=== PATIENT | female | born 1960 | race Caucasian/White ===

== ENCOUNTER 2017-03-28 17:36 | Observation (INO) ==
[2017-03-28] MEDS ORDERED: TYLENOL PO PRN (18:16)
[2017-03-28] MEDS ORDERED: ASPIRIN PO STA (19:01)
[2017-03-28] MEDS ORDERED: LOVENOX SUBQ ONE (19:01)
[2017-03-28] MEDS: NITROGLYCERIN TOP SCH (19:11)
[2017-03-28] MEDS: LOPRESSOR PO SCH ×2 (19:32→20:53)
[2017-03-28 19:33] LABS: MANUAL DIFF NEEDED? NO
--- NOTE | 2017-03-28 19:34 | Diag Imaging Result Doc PS360 ---
EXAM: CHEST-PORTABLE HISTORY: chest pain TECHNIQUE: Portable upright AP COMPARISON: 06/20/2014 FINDINGS: The lungs are well expanded. The heart is not enlarged. The vessels are not distended. No pneumonia. No pleural effusions identified. IMPRESSION: Negative chest. Electronically signed by Lizandro Villeda 03/28/2017 7:32 PM
[2017-03-28 19:36] LABS: BASO% 0.4 % (0.0-0.8); EOS# 0.52 X1000 (0.0-0.7); EOS% 4.4 % (0.0-10.0); HEMOGLOBIN 12.5 g/dL (12.0-16.0); IMM GRAN# 0.03 X1000 (0.0-0.04); IMM GRAN% 0.3 % (0.0-0.5); LYMPH# 3.06 X1000 (1.2-3.4); MCH 27.3 PG (27-31); MCHC 32.9 g/dL (33-37); MONO# 0.93 X1000 (0.11-0.59); MONO% 7.9 % (1.7-9.3); MPV 10.6 FL (7.4-10.4); PLT 264 X1000 (130-400); RBC 4.58 XMIL (4.2-5.4)
[2017-03-28 19:55] LABS: AGAP 4; ALBUMIN 3.7 g/dL (3.5-5.0); ALKALINE PHOSPHATASE 60 U/L (32-104); BUN 17 mg/dL (8-22); CALCIUM 8.4 mg/dL (8.8-10.2); CHLORIDE 105 mmol/L (98-107); COSMO 285; GOT 40 U/L (10-30); GPT 19 U/L (10-36); POTASSIUM 3.7 mmol/L (3.5-5.1); SODIUM 142 mmol/L (136-145); TCO2 33 mmol/L (25-35); TOTAL BILIRUBIN 0.19 mg/dL (0.20-1.00); TOTAL PROTEIN 6.4 g/dL (6.3-8.3)
[2017-03-28 20:00] LABS: INR 1.01; PROTIME 10.6 Seconds (9.2-11.7)
[2017-03-28 20:01] LABS: CK PROFILE 239 U/L (24-173)
[2017-03-28 20:04] LABS: FREE T4 1.23 ng/dL (0.93-1.70)
[2017-03-28 20:22] LABS: CK INDEX 7.7 (0.0-2.5); CK-MB 18.48 ng/mL (0.0-5.0)
[2017-03-28] MEDS ORDERED: MORPHINE IV ONE (20:40)
[2017-03-28] MEDS ORDERED: LIPITOR PO SCH (21:00)
[2017-03-28] MEDS ORDERED: TYLENOL ARTHRITIS PO SCH (21:00)
[2017-03-28] MEDS ORDERED: PAXIL PO SCH (21:00)
[2017-03-28] MEDS: NORVASC PO SCH (21:21)
[2017-03-28] MEDS ORDERED: CRESTOR PO ONE (22:23)
[2017-03-29] MEDS: NITROGLYCERIN TOP SCH ×3 (00:30→07:09)
[2017-03-29 05:35] LABS: MANUAL DIFF NEEDED? NO
--- NOTE | 2017-03-29 05:39 | EKG Report ---
Test Performed on : 03/28/2017 6:41:51 PM Test Reason : NO ORDER IN [employer] Blood Pressure : / mmHG Vent. Rate : 073 BPM Atrial Rate : 073 BPM P-R Int : 160 ms QRS Dur : 102 ms QT Int : 466 ms P-R-T Axes : 032 033 026 degrees QTc Int : 513 ms Normal sinus rhythm. Low voltage QRS Inferior infarct , age undetermined Cannot rule out Anterior infarct , age undetermined T wave abnormality, consider lateral ischemia Prolonged QT Abnormal ECG When compared with ECG of 07-APR-2015 11:17, Minimal criteria for Anterior infarct are now present Inferior infarct is now present T wave inversion now evident in Inferior leads T wave inversion now evident in Anterolateral leads Confirmed by Evans METCALF, Sina Brand ([id number]) on 04/02/2017 2:13:19 PM
[2017-03-29 05:57] LABS: BASO% 0.5 % (0.0-0.8); EOS# 0.67 X1000 (0.0-0.7); EOS% 6.6 % (0.0-10.0); HEMOGLOBIN 11.3 g/dL (12.0-16.0); IMM GRAN# 0.03 X1000 (0.0-0.04); IMM GRAN% 0.3 % (0.0-0.5); LYMPH# 3.17 X1000 (1.2-3.4); LYMPH% 31.1 % (20.5-51.1); MCH 26.9 PG (27-31); MCHC 32.3 g/dL (33-37); MCV 83.3 FL (81-99); MONO# 0.93 X1000 (0.11-0.59); MONO% 9.1 % (1.7-9.3); MPV 11.2 FL (7.4-10.4); NEUT% 52.4 % (42.2-75.2); PLT 257 X1000 (130-400)
[2017-03-29] MEDS ORDERED: ASPIRIN PO ONE (06:15)
[2017-03-29] MEDS ORDERED: ZANTAC PO ONE (06:15)
[2017-03-29] MEDS ORDERED: PREDNISONE PO ONE (06:16)
[2017-03-29] MEDS ORDERED: BENADRYL PO ONE (06:16)
--- NOTE | 2017-03-29 06:20 | EKG Report ---
Test Performed on : 03/29/2017 05:42:00 AM Test Reason : Chest pain Blood Pressure : / mmHG Vent. Rate : 050 BPM Atrial Rate : 050 BPM P-R Int : 180 ms QRS Dur : 102 ms QT Int : 544 ms P-R-T Axes : 059 053 068 degrees QTc Int : 495 ms Sinus bradycardia. Low voltage QRS Cannot rule out Anterior infarct (cited on or before 28-MAR-2017) T wave abnormality, consider lateral ischemia Abnormal ECG When compared with ECG of 28-MAR-2017 18:41, (Unconfirmed) Serial changes of Anterior infarct present Confirmed by Evans METCALF, Sina Brand ([id number]) on 04/02/2017 2:13:41 PM
[2017-03-29 06:24] LABS: AGAP 17; BUN 21 mg/dL (8-22); CALCIUM 8.2 mg/dL (8.8-10.2); CHLORIDE 104 mmol/L (98-107); COSMO 283; MAGNESIUM 2.2 mg/dL (1.5-2.7); POTASSIUM 3.9 mmol/L (3.5-5.1); SODIUM 141 mmol/L (136-145); TCO2 20 mmol/L (25-35)
--- NOTE | 2017-03-29 06:39 | HISTORY AND PHYSICAL ---
PRIMARY CARE PHYSICIAN: Dr. Hans Carlos. CHIEF COMPLAINT: Chest pain. HISTORY OF PRESENT ILLNESS: A 56-year-old white female with a complicated past medical history, presents for evaluation of above-mentioned symptoms. Current history of present illness began on Saturday evening. At that time, patient states she developed significant left-sided chest discomfort with exertion. The patient describes the pain as a "squeeze" radiating to the left arm. She had associated palpitations and diaphoresis. She denies significant shortness of breath and nausea. The patient states the pain lasted approximately 3 hours and improved, although did not completely resolve. Since that time, patient has had persistent chest discomfort. She notes increasing pain with minimal exertion. She denies paroxysmal nocturnal dyspnea and lower extremity edema. Because of worsening pain, the patient presented to my office for further evaluation and management. Upon arrival, an EKG was performed. Significant anterolateral ST and T-wave abnormalities were identified, new from previous. The patient will be admitted to the hospital for full evaluation and management of unstable angina, with possible evolving acute myocardial infarction. PAST MEDICAL HISTORY: 1. Anxiety. 2. History of appendicitis, status post appendectomy in 1985. 3. Attention deficit disorder. 4. [place]inares's esophagus. 5. History of a hyperplastic polyp, status post cecectomy in 2010. 6. History of bilateral fibrocystic breast disease. 7. History of cervical cancer, status post PANCHO/BSO in 2009. 8. History of chest discomfort, status post negative left heart catheterization per report in 2006, and negative stress testing in 09/2012 and 06/2016. 9. Interstitial cystitis. 10. Chronic cholecystitis, status post cholecystectomy in 1994. 11. History of colonic diverticulosis. 12. Reflux disease. 13. Hypertriglyceridemia. 14. Hyperlipidemia. 15. Hypertension. 16. History of hypokalemia. 17. Iron deficiency anemia. 18. Irritable bowel syndrome. 19. Migraine headaches. 20. Obstructive sleep apnea treated with CPAP therapy. 21. Right rotator cuff repair in 2014. 22. Overweight. 23. Palpitations. 24. Family history of metastatic breast cancer and colon cancer. 25. History of a superficial squamous cell carcinoma, status post resection. 26. History of papillary carcinoma of the thyroid in 2005. CURRENT MEDICATIONS: 1. Amlodipine 5 mg twice daily. 2. Aspirin 81 mg daily. 3. Calcium plus vitamin D daily. 4. Colace 100 mg 2 tablets at bedtime. 5. CoQ10 100 mg daily. 6. Estrace 1 mg daily. 7. Irbesartan 150 mg daily. 8. Potassium chloride 8 mEq daily. 9. Lansoprazole 30 mg daily. 10. Levothyroxine 125 mcg alternating with 150 mcg daily. 11. Meloxicam 15 mg daily. 12. MiraLAX as needed. 13. Paroxetine 40 mg daily. 14. Tylenol Arthritis 650 mg 2 tablets at bedtime. 15. Zyrtec 10 mg daily as needed. ALLERGIES: Patient states she is allergic to Celexa which causes fatigue, Cozaar which causes chest pain, Crestor which causes arthralgias, contrast dye which causes shortness of breath, hydrochlorothiazide which causes excessive hypokalemia, and lisinopril which causes chest discomfort. SOCIAL HISTORY: Patient previously smoked 1/2 pack per day for 6 years. She quit in 1987. She occasionally uses alcohol. She denies illicit drug use. 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 She enjoys singing and sewing. She exercises routinely. FAMILY HISTORY: Patient's father passed at age 82 secondary to complications of a stroke. He had a history of an acute myocardial infarction at age 71, hypertension, diabetes, Alzheimer's dementia, congestive heart failure, and hyperlipidemia. Patient's mother passed at age 78 secondary to complications of diabetes, uterine cancer, hypertension, hyperlipidemia, lung cancer, and renal cell carcinoma. Patient's brother passed at age 58 secondary to complications of colon cancer. REVIEW OF SYSTEMS: A 12 point review of systems was performed. Pertinent positives and negatives are noted in the history present illness. PHYSICAL EXAMINATION: VITAL SIGNS: Temperature 98.4 degrees, heart rate 91, respirations 16, blood pressure is 128/85. GENERAL: Well-nourished, well-developed, no acute distress. HEENT: Normocephalic, atraumatic. Pupils equal, round, reactive to light. Extraocular muscles intact. Sclerae anicteric. [place] conjunctivae. Oral and nasopharynx clear, without exudate. NECK: Supple. No lymphadenopathy. No thyromegaly. No bruits auscultated. CARDIOVASCULAR: Regular rate and rhythm. No significant murmurs, rubs, or gallops. PULMONARY: Clear to auscultation bilaterally. ABDOMEN: Soft, nontender, nondistended. Positive bowel sounds. EXTREMITIES: Moves all extremities well. No significant clubbing, cyanosis, or edema. NEUROLOGIC: Cranial nerves 2 through 12 grossly intact. Motor and sensory grossly intact. PSYCHOLOGIC: Examination is appropriate. LABORATORY DATA: Pending at the time of admission. EKG reveals significant ST and T-wave abnormalities in the anterior lateral leads. ASSESSMENT AND PLAN: A 56-year-old white female, with a complicated past medical history as noted, presents for evaluation of chest discomfort. The patient's EKG today is significantly changed from her EKG in October 2016. The patient continues to have significant chest discomfort with minimal exertion. I suspect the patient is at least having unstable angina. EKG is more consistent with an evolving acute myocardial infarction. We will admit the patient to the hospital for full evaluation and management. 1. Admit to CICU. 2. Unstable angina/evolving acute myocardial infarction - We will start patient on aspirin, Lovenox, metoprolol, and nitroglycerin paste. I have discussed case with Dr. Cevallos, and he will immediately consult. We will monitor patient on telemetry and follow serial cardiac enzymes. Depending on the initial set of cardiac enzymes, we will determine if a more acute intervention, including transfer for heart catheterization, is more appropriate. 3. Hypertension - For now, we will continue patient's home medications. We will monitor blood pressure closely, with the addition of nitroglycerin paste. 4. Hyperlipidemia - Unfortunately, the patient has had difficulty tolerating statin intervention. We will consider options depending on patient's cardiac evaluation. 5. Hypothyroidism - We will continue patient on replacement. 6. Reflux disease - We will continue patient on lansoprazole therapy. 7. Fluid/Electrolytes/Nutrition - We will monitor electrolytes, saline lock IV, NPO prophylaxis. Patient will be placed on Lovenox. cc: Hans Carlos MD
[2017-03-29] MEDS: LOPRESSOR PO SCH ×2 (06:48→09:02)
[2017-03-29] MEDS ORDERED: SYNTHROID PO SCH (07:00)
[2017-03-29] MEDS ORDERED: NITROGLYCERIN TOP SCH (07:06)
[2017-03-29 08:14] VITALS: BP 90/61
[2017-03-29] MEDS ORDERED: ESTRACE PO SCH (09:00)
[2017-03-29] MEDS ORDERED: AVAPRO PO SCH (09:00)
[2017-03-29] MEDS ORDERED: LIPITOR PO SCH (09:00)
[2017-03-29] MEDS ORDERED: CALTRATE 600 + D PO SCH (09:00)
[2017-03-29] MEDS: NORVASC PO SCH (09:02)
[2017-03-29] MEDS ORDERED: HEPARIN 1000 UNITS/NS 2,000 UNIT/1,000 ML IV.SOLN ONE (09:12)
--- NOTE | 2017-03-29 10:59 | ECHO REPORT ---
ORDER DATE: 03/29/2017 INTERPRETING PHYSICIAN: Dr. Carlos Alberto Cevallos ECHOCARDIOGRAPHIC MEASUREMENTS: Interventricular septum: 1.1 cm. Left ventricular posterior wall: 1.1 cm. Diastolic diameter: 4.9 cm. Left atrium: 3.6 cm. Aortic root: 3.5 cm. SUMMARY OF THE 2-DIMENSIONAL IMAGIN. Aortic valve leaflets are trileaflet. Mitral valve was normal. There is mild mitral annular calcification. Pulmonic valve was normal. Tricuspid valve was normal. 2. Peak velocity across the aortic valve is less than 2 m/sec. There is no aortic stenosis or regurgitation. There is mild mitral regurgitation. Mild tricuspid regurgitation. Trace pulmonary regurgitation. 3. Peak velocity across the tricuspid valve was 2.34 m/sec. 4. Normal left ventricular cavity size. Estimated ejection fraction of 45-50%. There is inferior wall and inferoapical wall akinesis. 5. There is no pericardial effusion or obvious intracardiac mass or thrombus seen. cc: MD Hans Cordova MD
--- NOTE | 2017-03-29 18:54 | DISCHARGE SUMMARY ---
ADMISSION DATE: 03/28/2017 DISCHARGE DATE: 03/29/2017 ADMISSION DIAGNOSIS: Chest pain. DISCHARGE DIAGNOSES: 1. Evolving acute myocardial infarction. 2. Hypertension, present on arrival. 3. Hyperlipidemia, present on arrival. 4. Hypothyroidism, present on arrival. 5. Reflux disease present on arrival. CONSULTATIONS: Carlos Alberto Cevallos MD with Cardiology was consulted for further evaluation and management of chest discomfort/acute myocardial infarction. PROCEDURES: An echocardiogram was performed on 03/29/2017 which revealed aortic valve leaflets are trileaflet. Mitral valve was normal. There is mild mitral annular calcification. Pulmonic valve was normal. Tricuspid valve was normal. Peak velocity across the aortic valve is less than 2 meters/second. There is no aortic stenosis or regurgitation. There is mild mitral regurgitation, mild tricuspid regurgitation, trace pulmonary regurgitation. Peak velocity across the tricuspid valve was 3.4 m/sec. Normal left ventricular cavity size. Estimated ejection fraction of 45-50%. There is inferior wall and inferior apical wall akinesis. There is no pericardial effusion or obvious intracardiac mass or thrombus seen. HISTORY AND PHYSICAL EXAMINATION: See admit note. PHYSICAL EXAMINATION PRIOR TO DISCHARGE: Vital Signs: Temperature 98.7 degrees, heart rate 78, respirations 19, blood pressure is 90/61. General: Well-nourished, well-developed, in no acute distress. Cardiovascular: Regular rate and rhythm. No significant murmurs, rubs, or gallops. Pulmonary: Clear to auscultation bilaterally. Abdomen: Soft, nontender, nondistended. Positive bowel sounds. Extremities: Moves all extremities well. No significant clubbing, cyanosis, or edema. Dermatologic: Evaluation reveals no evidence of rash. LABORATORY DATA PRIOR TO DISCHARGE: White blood cell count 10.18, hemoglobin 11.3, hematocrit 35.0, platelet count 257,000. Sodium 141, potassium 3.9, chloride 104, bicarbonate 20, BUN 21, creatinine 0.9, glucose 80, calcium 8.2, magnesium 2.2, troponin 0.962, total cholesterol 182, triglycerides 162, HDL 39, LDL 130. HOSPITAL COURSE: Patient was admitted as per history and physical examination. Hospital course per condition is as follows: 1. Evolving acute myocardial infarction - Upon admission, patient had complained of 48 hours of chest discomfort. Initial set of cardiac enzymes were slightly positive as described. Cardiology was immediately consulted. Patient was started on Lovenox, metoprolol, nitroglycerin paste, and an aspirin. The patient tolerated this very well. With treatment, patient's chest pain completely resolved. The patient will be transferred to [facility] immediately for left heart catheterization and possible intervention. Further medication recommendations will be made thereafter. 2. Hypertension - Patient's blood pressure has remained controlled while hospitalized. Once again, outpatient medical intervention will be determined by the left heart catheterization findings. 3. Hyperlipidemia - Patient had difficulty tolerating statin intervention in the past. We will need to attempt alternative agents upon discharge. 4. Hypothyroidism - Patient will be continued on replacement. 5. Reflux disease - We will continue patient on lansoprazole therapy. DISCHARGE CONDITION: Stable. DISPOSITION: Transferred to [facility] for left heart catheterization. DISCHARGE MEDICATIONS/HOME MEDICATIONS: 1. Amlodipine 5 mg twice daily. 2. Aspirin 325 mg daily. 3. Calcium plus vitamin D daily. 4. Colace 100 mg 2 tablets at bedtime. 5. CoQ10, 100 mg daily. 6. Estrace 1 mg daily. 7. Irbesartan 150 mg daily. 8. Potassium 8 mEq daily. 9. Lansoprazole 30 mg daily. 10. Levothyroxine 125 alternating with 150 mcg daily. 11. Meloxicam 15 mg daily. 12. MiraLAX as needed. 13. Paroxetine 40 mg daily. 14. Tylenol Arthritis 650 mg 2 tablets at bedtime. 15. Zyrtec 10 mg daily as needed. FOLLOWUP: Patient to follow up with me upon discharge from [facility]. cc: Hans Carlos MD
[2017-03-30] MEDS ORDERED: SYNTHROID PO SCH (07:00)
== END 2017-03-29 10:12 | disposition short-term general hospital (02) ==
LOC: INTOOBSV 17:36 → DIRADM 17:36 → 3S 18:10 → ICU 21:16
PROVIDERS: ADMIT Internal Medicine; ATTEND Internal Medicine

== ENCOUNTER 2017-07-08 10:39 | Observation (INO) ==
[2017-07-08] MEDS ORDERED: ASPIRIN PO STA (10:50)
[2017-07-08] MEDS ORDERED: MORPHINE ONE (11:12)
[2017-07-08 11:13] LABS: MANUAL DIFF NEEDED? NO
[2017-07-08 11:16] LABS: BASO% 0.4 % (0.0-0.8); EOS# 0.36 X1000 (0.0-0.7); EOS% 3.6 % (0.0-10.0); HEMATOCRIT 40.7 % (37.0-47.0); HEMOGLOBIN 13.6 g/dL (12.0-16.0); LYMPH# 3.22 X1000 (1.2-3.4); LYMPH% 32.2 % (20.5-51.1); MCH 28.2 PG (27-31); MCHC 33.4 g/dL (33-37); MCV 84.3 FL (81-99); MONO# 0.87 X1000 (0.11-0.59); MONO% 8.7 % (1.7-9.3); MPV 11.4 FL (7.4-10.4); NEUT% 55.1 % (42.2-75.2); PLT 272 X1000 (130-400); RBC 4.83 XMIL (4.2-5.4)
--- NOTE | 2017-07-08 11:17 | EKG Report ---
Test Performed on : 07/08/2017 10:50:56 AM Test Reason : CHEST PAIN Blood Pressure : / mmHG Vent. Rate : 067 BPM Atrial Rate : 067 BPM P-R Int : 136 ms QRS Dur : 094 ms QT Int : 418 ms P-R-T Axes : 023 031 045 degrees QTc Int : 441 ms Normal sinus rhythm. Low voltage QRS Cannot rule out Anterior infarct (cited on or before 28-MAR-2017) Abnormal ECG When compared with ECG of 29-MAR-2017 05:42, ST elevation now present in Anterior leads Nonspecific T wave abnormality, improved in Inferior leads T wave inversion no longer evident in Anterolateral leads Unconfirmed Result
[2017-07-08] MEDS ORDERED: MORPHINE IV ONE (11:19)
[2017-07-08 11:25] LABS: PROTIME 10.5 Seconds (9.2-11.7)
[2017-07-08 11:39] LABS: AGAP 15; ALBUMIN 4.5 g/dL (3.5-5.0); ALKALINE PHOSPHATASE 66 U/L (32-104); BUN 17 mg/dL (8-22); CALCIUM 9.7 mg/dL (8.8-10.2); CHLORIDE 103 mmol/L (98-107); CK PROFILE 160 U/L (24-173); COSMO 285; GOT 19 U/L (10-30); GPT 15 U/L (10-36); MAGNESIUM 2.1 mg/dL (1.5-2.7); POTASSIUM 3.7 mmol/L (3.5-5.1); SODIUM 142 mmol/L (136-145); TCO2 24 mmol/L (25-35); TOTAL BILIRUBIN 0.41 mg/dL (0.20-1.00); TOTAL PROTEIN 7.9 g/dL (6.3-8.3)
--- NOTE | 2017-07-08 12:16 | Diag Imaging Result Doc PS360 ---
CHEST-2 VIEWS - 07/08/2017 INDICATION: CP TECHNIQUE: COMPARISON: 03/28/2017 FINDINGS: Heart size is slightly enlarged. Pulmonary vascularity is top normal. No focal infiltrates, pneumothorax, or pleural effusion. IMPRESSION: Mild cardiomegaly. Electronically signed by Valdemar Olivares 07/08/2017 12:14 PM
[2017-07-08] MEDS ORDERED: NITROGLYCERIN 0.4 MG/HR PATCH TD ONE (12:28)
[2017-07-08] MEDS ORDERED: KLONOPIN PO ONE (12:28)
[2017-07-08] MEDS ORDERED: MORPHINE IV PRN (12:49)
[2017-07-08] MEDS ORDERED: NS 1,000 ML IV ONE (12:49)
[2017-07-08] MEDS ORDERED: ZOFRAN IV PRN (12:49)
--- NOTE | 2017-07-08 13:31 | PROVIDER DOCUMENTATION ---
This chart was entered by Violet Petersen Scribe, acting as scribe for Michael Stark MD. HPI-Chest Pain - General Stated Complaint: cp Time Seen by Provider: 07/08/17 11:11 Source: patient Allergies/Adverse Reactions: Patient Allergies Allergy/AdvReac Type Severity Reaction Status Date / Time Iodinated Contrast- Oral and Allergy Severe ANAPHYLAXIS Verified 07/08/17 12:03 IV Dye lisinopril Allergy Mild Unknown Verified 07/08/17 12:03 latex AdvReac Severe BREAKS OUT Verified 07/08/17 12:03 SKIN Home Medications: Home Medication List Medication Instructions Recorded Confirmed Last Taken Type Meloxicam [Mobic] 15 mg PO QHS 02/13/13 07/08/17 1 Day Ago History Paroxetine HCl [Paxil] 40 mg PO QHS 02/13/13 07/08/17 1 Day Ago History Levothyroxine [Synthroid] 150 microgm PO EVERY OTHER DAY 04/07/15 07/08/1707/08 History Melatonin 5 mg PO HS 04/07/15 07/08/17 1 Day Ago History Aspirin 81 mg PO DAILY 03/28/17 03/28/17 07/08/17 History Lansoprazole 30 mg PO DAILY 03/28/17 07/08/17 07/08/17 History Nystatin Susp [Mycostatin Susp] 5 ml PO 4XDAY PRN 03/28/17 07/08/17 Unknown History Polyethylene Glycol 3350 [Miralax] 17 gm PO PRN PRN 03/28/17 07/08/17 Unknown History Potassium Chloride [Klor-Con 8] 8 meq PO EVERY OTHER DAY 03/28/17 07/08/17 1 Day Ago History Ubidecarenone [Coq-10] 100 mg PO DAILY 03/28/17 07/08/17 1 Day Ago History ATORVAstatin [Lipitor] 20 mg PO QHS 07/08/17 07/08/17 1 Day Ago History Metoprolol [Lopressor] 25 mg PO DAILY 07/08/17 07/08/17 07/08/17 History - History of Present Illness-CP Nature of Presenting Problem: Pt is a 56 y/o F presents to the ED via EMS for left side chest pain. Pt states chest pain radiates to left armpit and left side jaw. Pt states chest pain started this am while sitting on the couch. Pt states nausea and denies vomiting. Pt states diaphoresis. Pt states having a CA in March 2017. Location: reports: other (left side) Chest Pain Radiation: reports: jaw (left), other (left armpit) Quality of Pain: reports: pressure, tightness Severity in ED: mild Onset/Duration: just prior to arrival Timing: still present Context/Activities at Onset: reports: light activity Modifying Factors: improves with: nothing Associated Symptoms: reports: diaphoresis, nausea Nitro Today/Relief: 0.4 mg x 3, provided by EMS, mild relief Aspirin Treatment Today: 81 mg x 1, provided at home Prior Chest Pain/Cardiac Workup: reports: heart attack (March 2017) Similar Symptoms Previously?: Yes Recently Seen Here or By Another Healthcare Provider: Yes Review of Systems - Adult - REVIEW OF SYSTEMS - ADULT Constitutional: reports: no symptoms reported Eyes: reports: no symptoms reported Ears, Nose, Mouth & Throat: reports: no symptoms reported Cardiovascular: reports: chest pain (left side). denies: heart murmur, irregular heart rate Respiratory: reports: no symptoms reported Gastrointestinal: reports: nausea. denies: abdominal pain, diarrhea, vomiting Genitourinary: reports: no symptoms reported Musculoskeletal: reports: other (left armpit and left jaw pain). denies: bone pain, neck pain Integumentary: reports: no symptoms reported Neurological: reports: no symptoms reported Psychiatric: reports: no symptoms reported Endocrine: reports: excessive sweating. denies: increased hunger, increased thirst Hematologic/Lymphatic: reports: no symptoms reported Allergic/Immunologic: reports: no symptoms reported All Other Systems: Reviewed and Negative Past History - Adult - PAST MEDICAL HISTORY-ADULT Review of Records: reports: Nursing Assessment Review, Medications Reviewed, Social history reviewed & non-contributory. Major Childhood Illnesses: reports: denies history Cardiovascular: reports: HTN, hyperlipidemia Respiratory: reports: sleep apnea Gastrointestinal: reports: GERD Obstetrical/Gynecological: reports: denies history Genitourinary: reports: denies history Musculoskeletal: reports: denies history Neurological: reports: denies history Psychiatric: reports: depression Endocrine/Immune: reports: thyroid disorder Other Conditions: reports: denies history - PRIOR SURGERIES/PROCEDURES Surgical/Procedure History: reports: appendectomy, cholecystectomy, hysterectomy - PRIOR HOSPITALIZATIONS Prior Hospitalizations: reports: none - IMMUNIZATION STATUS Childhood Immunizations: See Nurse Assessment Flu Vaccine: See Nurse Assessment - FAMILY HISTORY Family History: reviewed, not pertinent - SOCIAL HISTORY Smoking: quit less than 1 year, cigarettes Substance Use: alcohol Alcohol Use Frequency: occasionally Number of drinks per typical drinking period:: 2 drinks Living Situation: family Physical Exam-General - PHYSICAL EXAM-ADULT Initial Vital Signs Reviewed: Yes - CONSTITUTIONAL General Appearance: appears well, alert, no apparent distress. negative: lethargic, slow to respond - EYES Eyes: PERRL/EOMI, pink conjunctivae. negative: pale conjunctivae, sunken eyes - HEAD, EARS, NOSE, MOUTH & THROAT HENMT: normal ENT inspection. negative: angioedema, hearing deficit - NECK Neck: normal inspection. negative: lymphadenopathy, tender lateral - RESPIRATORY Respiratory: chest non-tender, lungs clear, normal breath sounds. negative: crackles, rhonchi - CARDIOVASCULAR Cardiovascular: normal peripheral pulses, regular rate, rhythm. negative: tachycardia, systolic murmur - GASTROINTESTINAL (ABDOMEN) Abdominal Exam: normal bowel sounds, non tender, soft. negative: guarding, rebound - LYMPHATIC Lymphatic: no adenopathy. negative: enlargement, streaking - MUSCULOSKELETAL Back Exam: normal inspection. negative: ecchymosis, swelling Extremity: normal inspection. negative: deformity, erythema, swelling - SKIN Integumentary: normal color, normal turgor, warm/dry. negative: diaphoresis, ecchymosis, erythema, laceration(s), rash - NEUROLOGIC Neurologic: grossly normal. negative: aphasia, facial droop - PSYCHIATRIC Psych/Mental Status: normal mood/affect, oriented x 3. negative: paranoid, tearful Progress - PLAN OF CARE/RESULTS Progress/Plan/Lab Results: Vital Signs - 8 hr 07/08/17 11:11 07/08/17 11:21 07/08/17 11:49 Temperature 98.7 F 98 F Pulse Rate 71 72 71 Respiratory Rate 21 16 16 Blood Pressure 140/95 157/98 140/83 O2 Sat by Pulse Oximetry 99 98 100 07/08/17 12:11 Temperature 98 F Pulse Rate 68 Respiratory Rate 16 Blood Pressure 111/60 O2 Sat by Pulse Oximetry 98 Laboratory Results - last 24 hr 07/08/17 07/08/17 07/08/17 10:50 10:50 10:50 WBC 10.01 RBC 4.83 Hgb 13.6 Hct 40.7 MCV 84.3 MCH 28.2 MCHC 33.4 RDW Std Deviation 14.9 H Plt Count 272 MPV 11.4 H Immature Gran % (Auto) 0.0 Neut % (Auto) 55.1 Lymph % (Auto) 32.2 [place] % (Auto) 8.7 Eos % (Auto) 3.6 Baso % (Auto) 0.4 Immature Gran # (Auto) 0.00 Neut # (Auto) 5.52 Lymph # (Auto) 3.22 [place] # (Auto) 0.87 H Eos # (Auto) 0.36 Baso # (Auto) 0.04 PT INR PTT (Actin FS) D-Dimer 0.34 Sodium 142 Potassium 3.7 Chloride 103 Carbon Dioxide 24 L Anion Gap 15 BUN 17 Creatinine 0.7 Estimated GFR/1.73 m2 > 60 BUN/Creatinine Ratio 24 Glucose 96 Calculated Osmolality 285 Calcium 9.7 Magnesium 2.1 Total Bilirubin 0.41 AST 19 ALT 15 Alkaline Phosphatase 66 Creatine Kinase 160 Troponin T [id number] Pept Total Protein 7.9 Albumin 4.5 Globulin 3.4 Albumin/Globulin Ratio 1.3 07/08/17 07/08/17 07/08/17 10:50 10:50 10:50 WBC RBC Hgb Hct MCV MCH MCHC RDW Std Deviation Plt Count MPV Immature Gran % (Auto) Neut % (Auto) Lymph % (Auto) [place] % (Auto) Eos % (Auto) Baso % (Auto) Immature Gran # (Auto) Neut # (Auto) Lymph # (Auto) [place] # (Auto) Eos # (Auto) Baso # (Auto) PT 10.5 INR 1.00 PTT (Actin FS) 27.0 D-Dimer Sodium Potassium Chloride Carbon Dioxide Anion Gap BUN Creatinine Estimated GFR/1.73 m2 BUN/Creatinine Ratio Glucose Calculated Osmolality Calcium Magnesium Total Bilirubin AST ALT Alkaline Phosphatase Creatine Kinase Troponin T < 0.010 [id number] Pept 441 H Total Protein Albumin Globulin Albumin/Globulin Ratio Orders Category Date Time Status Cardiac Monitoring DIRECTED Care 07/08/17 10:50 Active Saline Loc NOW Care 07/08/17 10:50 Active CHEST-2 VIEWS [RAD] Stat Exams 07/08/17 10:50 Completed CBC WITH ELECTRONIC DIFF [HEME] Stat Lab 07/08/17 10:50 Completed CK PROFILE [SP CHEM] Stat Lab 07/08/17 10:50 Completed COMPREHENSIVE METABOLIC PANEL [CHEM] Stat Lab 07/08/17 10:50 Completed D-DIMER [CHEM] Stat Lab 07/08/17 10:50 Completed MAGNESIUM [CHEM] Stat Lab 07/08/17 10:50 Completed PRO B-NATRIURETIC PEPTIDE Stat Lab 07/08/17 10:50 Completed PROTIME WITH INR [COAG] Stat Lab 07/08/17 10:50 Completed PTT [COAG] Stat Lab 07/08/17 10:50 Completed TROPONIN T Stat Lab 07/08/17 10:50 Completed Aspirin Med 07/08/17 10:50 Discontinued 325 mg PO STAT STA Clonazepam [Klonopin] Med 07/08/17 12:28 Discontinued 0.5 mg PO NOW ONE Morphine Med 07/08/17 11:12 Discontinued 2 mg .ROUTE .STK-MED ONE Morphine Med 07/08/17 11:19 Discontinued 2 mg IV NOW ONE Nitroglycerin [Nitroglycerin 0.4 mg/Hr Patch] Med 07/08/17 12:28 Discontinued 1 each TD NOW ONE EKG [EKG] Stat Ther 07/08/17 10:50 Draft Result Diagrams: 07/08/17 10:50 07/08/17 10:50 - EKG 1 Time of EKG reading by physician:: 10:50 EKG Read and Signed by:: Michael Stark EKG Interpretation (*Must complete 3 of following elements*): Abnormal Rate: 67 Rhythm: normal sinus rhythm Comments: low voltage QRS; cannot rule out anterior infarct, age undetermined - XRAY 1 XRAY Study: Chest Impression: Abnormal XRAY Interpretation: Mild cardiomegaly - CONSULTS/PCP/HOSPITALIST Notification #1 *Consult/PCP/Hospitalist*: Dr. Carlos Time Discussed: 12:44 Reason/Comments: Dr. Stark consults with Dr. Carlos about Pt Consult Disposition: Admit Departure - Departure Date of Disposition Decision: 07/08/17 Time of Disposition Decision: 12:48 DIAGNOSIS: Chest pain Disposition: ADMITTED INPATIENT 09 Certified Medical Emergency: Emergent Condition: Stable Referrals and Follow-Ups: Hans Carlos MD [Primary Care Provider] - - Critical Care Note This patient required my direct & personal management of CC.: No Attestation - Physician/ ESTER Attestation Patient care was provided by Advanced Practice Provider:: No The physician spent face to face time with patient:: Yes Advanced Practice Provider documentation review:: Supervising physician onsite and consulted in the evaluation and care of this patient. The physician did have a face to face encounter with the patient. This chart was documented by the indicated scribe, (Violet Petersen Scribe) and accurately reflects the services I performed and decisions made by me, Michael Stark MD, as attested by the provider's signature.
[2017-07-08] MEDS ORDERED: LOVENOX SUBQ ONE (18:45)
[2017-07-08] MEDS ORDERED: KLOR-CON PO ONE (18:47)
[2017-07-08] MEDS ORDERED: BRILINTA PO ONE (18:56)
[2017-07-08] MEDS ORDERED: MIRALAX PO PRN (20:01)
[2017-07-08] MEDS: LOPRESSOR PO SCH (20:21)
[2017-07-08] MEDS: LIPITOR PO SCH (20:21)
[2017-07-08] MEDS: NORCO-5 PO PRN (20:21)
[2017-07-08 20:56] LABS: CK INDEX 14.3 (0.0-2.5); CK-MB 74.42 ng/mL (0.0-5.0)
[2017-07-08] MEDS ORDERED: LIPITOR PO SCH (21:00)
[2017-07-08] MEDS: MELATONIN PO SCH (21:39)
[2017-07-08] MEDS: PAXIL PO SCH (21:39)
--- NOTE | 2017-07-08 21:58 | CONSULTATION ---
DATE OF CONSULTATION: 07/08/2017 IMPRESSION: 1. Apical myocardial infarction, recurrent with previous apical myocardial infarction back in March of this year. 2. Atherosclerotic coronary disease with coronary angiography in March of this year reporting significant diffuse coronary atherosclerosis in distal left anterior descending coronary artery of 70% severity and less than 1 mm vessel too small for revascularization. Patient treated medically. 3. Rheumatoid arthritis. 4. Hypertension. 5. Obstructive sleep apnea. 6. Hyperlipidemia. RECOMMENDATIONS: 1. Move to Cardiac step-down unit. 2. Subcutaneous Lovenox 1 mg/kg this evening. 3. Intensify medical therapy with dual antiplatelet therapy and addition of Brilinta. Aspirin reduced to 81 mg daily. 4. Intensify statin therapy. LDL cholesterol on Lipitor 40 mg was 02. Will go ahead and increase to 80 mg daily as tolerated. 5. Continue beta-gisela metoprolol 25 mg twice daily as tolerated. 6. Serial cardiac enzymes. 7. Limited followup echocardiography to assess apical wall motion and left ventricular ejection fraction. 8. Given fairly recent coronary angiographic findings, augmented medical therapy most appropriate as apical portion of left anterior descending coronary felt too small for revascularization/percutaneous intervention. HISTORY: This 56-year-old, white female with past history of atherosclerotic coronary disease as outlined above, small apical myocardial infarction in March of this year, hypertension, hyperlipidemia, rheumatoid arthritis, and obstructive sleep apnea was admitted to the emergency room with recurrent angina and suspected acute coronary syndrome. She relates that since March of this year, she has had very little chest discomfort. This past Saturday she started having more recurrence of left-sided chest pressure with radiation to the left upper extremity and to the left side of the jaw. She had multiple episodes Saturday and again on Saturday. She relates that yesterday on Saturday she had a pretty good day with very little chest discomfort. However, this morning she was eating breakfast when she had fairly intense left-sided chest pressure with radiation to left upper extremity and to the left side of her neck and jaw. She relates that this was the most intense chest discomfort yet. She took sublingual nitroglycerin, but discomfort persisted, summoned an ambulance and was brought to the emergency room. She was treated in the emergency room with nitroglycerin and her chest discomfort resolved, and all in all lasted approximately 2 hours. She has not any further recurrence of chest discomfort since admission. She has had limited tolerance of isosorbide due to headache and has not been taking this medication daily. She has been under a considerable amount of stress as she is going through a divorce. She has moved in with her sister. She adds that she has gotten off of her diet the last several weeks as her sister's significant other is a very good cook. PAST MEDICAL HISTORY: 1. Atherosclerotic coronary disease with small apical myocardial infarction in March of this year. Coronary angiography demonstrated diffuse disease in distal left anterior descending coronary of about 70% severity and part of vessel less than 1 mm in diameter. Remainder of coronaries without significant stenosis. 2. Rheumatoid arthritis. 3. Hypertension. 4. Hyperlipidemia. 5. Obstructive sleep apnea. 6. Gastroesophageal reflux disease. 7. History of uterine cancer. 8. History of thyroid cancer. PAST SURGICAL HISTORY: Includes unspecified colon surgery, cholecystectomy, hysterectomy, thyroid surgery. ALLERGIES: She is allergic or intolerant to intravenous contrast dye which causes a rash and difficulty breathing. She is also allergic to latex. MEDICATIONS: Prior to admission as listed. SOCIAL HISTORY: She does not smoke. She is currently under a fair amount of stress as she is going through a divorce. FAMILY HISTORY: Positive for coronary disease. REVIEW OF SYSTEMS: Pulmonary: Negative. Gastrointestinal: Negative. Constitutional: Negative. Remainder review of systems negative/noncontributory with 14 total systems reviewed. PHYSICAL EXAMINATION: General: This is a pleasant overweight middle-aged female in no distress. Vital signs: Blood pressure 124/71, heart rate 65 and regular, oxygen saturation 98% on room air. HEENT: Extraocular movements appear intact. Mucous membranes moist. Neck: Supple without jugular venous distention. There are no carotid bruits. Chest: Clear to auscultation. Cardiac Exam: Reveals a regular rate and rhythm without appreciable murmur or gallop. Abdomen: Soft, nontender. Bowel sounds are normal. Extremities: Without edema. Neurologic Exam: Reveals her to be alert and fully oriented. Speech is fluent. She moves all 4 extremities equally well. Skin: Warm and dry. Psychiatric: Exam reveals mood to be appropriate. DIAGNOSTIC DATA: ECG demonstrates sinus rhythm and mild ST elevation in leads V1 through V4 and also in lead 3. Apical myocardial infarction suggests compared to previous ECG at this facility 03/29/2017. Heart rate has increased from 50 beats per minute and very subtle ST elevation in leads V1 through V4. It is more apparent on current EKG than on previous ECG and T-wave inversion is also seen on previous ECG in leads V1 through V6. Previous ECG is suggestive of an apical infarct as well. Previous ECG is suggestive of probable recent apical infarct at that time. LABORATORY DATA: Includes a troponin T of less than 0.01. cc: MD Hans Ely MD
--- NOTE | 2017-07-08 22:16 | HISTORY AND PHYSICAL ---
PRIMARY CARE PHYSICIAN: Dr. Hans Carlos. CHIEF COMPLAINT: Chest pain. HISTORY OF PRESENT ILLNESS: A 56-year-old white female with past medical history significant for anxiety, [place] esophagus, cervical cancer, interstitial cystitis. coronary artery disease, reflux disease, hypertriglyceridemia, hyperlipidemia and hypertension presents for evaluation of above-mentioned symptoms. Pertinent history of present illness began on March 28. At that time, patient was admitted with a non-ST elevation myocardial infarction. The patient was immediately transferred to [facility]. Small-vessel disease was confirmed. Patient was instructed to stop her Estrace and meloxicam. Atorvastatin and Toprol-XL were initiated. Since that time patient has done reasonably well. Titration of medication has been warranted. Recently patient had Imdur added to her medical regimen. Unfortunately, she has had difficulty tolerating his. This morning patient awoke in her usual state of health. Patient states at approximately 9:30 a.m. while talking to her sister she developed right-sided chest pain. She describes this pain as a pressure. Quickly, the pain increased in intensity to a 10/10. She had associated radiating pain to the left neck and left shoulder. In addition, she complained of nausea, shortness of breath and palpitations. EMS was contacted. The patient was transported via ambulance to the emergency department. In transit, patient was provided 4 sublingual nitroglycerin with modest improved. Upon arrival in the emergency department, full evaluation was pursued. Nitroglycerine paste was added as was morphine. At time of my evaluation patient was chest pain free. She denies current palpitations, nausea, vomiting, or shortness of breath. Initial set of cardiac enzymes returned negative. Repeat set has returned positive suggesting an acute event. PAST MEDICAL HISTORY: 1. Anxiety. 2. History of appendicitis, status post appendectomy in 1985. 3. Attention deficit disorder. 4. [place] esophagus. 5. History of a breast cyst. 6. Cervical cancer status post PANCHO/BSO. 7. Chronic interstitial cystitis. 8. Chronic cholecystitis status post laparoscopic cholecystectomy. 9. Diverticulosis. 10. Coronary artery disease as described above. 11. Reflux disease. 12. Hypertriglyceridemia. 13. Hyperlipidemia. 14. Hypertension. 15. Chronic hypokalemia. 16. Iron deficiency anemia. 17. Irritable bowel syndrome. 18. Migraine headaches. 19. Obstructive sleep apnea. 20. Overweight. 21. Palpitations. 22. 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 23. 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 CURRENT MEDICATIONS: 1. Aspirin 81 mg daily. 2. Bentyl 20 mg 3 times daily as needed. 3. Calcium plus vitamin D daily. 4. Colace 100 mg 2 tablets at bedtime. 5. Co-Q10 100 mg daily. 6. Cozaar 25 mg daily. 7. Flexeril as needed. 8. Potassium chloride 8 mEq daily. 9. Lansoprazole 30 mg daily. 10. Levothyroxine 125 alternating with 150 mcg daily. 11. Meloxicam 15 mg daily. 12. MiraLAX as needed. 13. Paroxetine 40 mg daily. 14. Phenergan as needed. 15. Toprol-XL 25 mg daily. 16. Tylenol Arthritis as needed. 17. Zyrtec 10 mg daily as needed. ALLERGIES: Patient states that she is allergic to Celexa, Crestor, contrast dye, hydrochlorothiazide and lisinopril. SOCIAL HISTORY: The patient is a former smoker having smoked 1/2 pack per day for 6 years. She stopped in 1987. She occasionally uses alcohol. She denies illicit drug use. 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 She exercises routinely. FAMILY HISTORY: Patient's father passed at age 82 secondary to complications of a stroke. He had a history of an acute myocardial infarction at age 71, hypertension, diabetes, Alzheimer dementia, congestive heart failure and hyperlipidemia. Patient's mother passed at age 78 secondary to complications of diabetes, uterine cancer, hypertension, hyperlipidemia, lung cancer and renal cell carcinoma. REVIEW OF SYSTEMS: A 12 point review of systems was performed. Pertinent positives and negatives are noted history present illness. PHYSICAL EXAMINATION: VITAL SIGNS: Temperature 97.4 degrees, heart rate 64, respirations 16, blood pressure is 126/77. GENERAL: Well nourished, well developed, no acute distress. HEENT: Normocephalic, atraumatic. Pupils equal, round, reactive to light. Extraocular muscles intact. Sclerae anicteric. [place] conjunctivae. Oral, nasopharynx clear without exudate. NECK: Supple. No lymphadenopathy No bruits auscultated. CARDIOVASCULAR: Regular rate and rhythm, no significant murmurs, rubs, or gallops. PULMONARY: Clear to auscultation bilaterally. ABDOMEN: Soft, nontender, nondistended. Positive bowel sounds. EXTREMITIES: Moves all extremities well. No significant clubbing, cyanosis, or edema. NEUROLOGIC: Cranial nerves 2-12 grossly intact. Motor and sensory grossly intact. PSYCHOLOGIC: Examination is appropriate. LABORATORY DATA: White blood cell count 10.01, hemoglobin 13.6, hematocrit 40.7, platelet count 272,000. PT 10.5, INR is 1.00, PTT is 27.0, D-dimer 0.34, sodium 142, potassium 3.7, chloride 103, bicarb 24, BUN 17, creatinine 0.7, glucose 96, calcium 9.7, magnesium 2.1, total bilirubin 0.41, total protein 7.9, albumin 4.5, alkaline phosphatase 66, AST 19, ALT 15, CK 519, CK/MB 74, troponin 2.20. ASSESSMENT AND PLAN: A 56-year-old white female with a complicated past medical history as noted presents for evaluation of chest discomfort. It does appear that patient is in the midst of an acute myocardial infarction affecting the apical region. The patient recently had a left heart catheterization which suggested only small-vessel disease. Will admit the patient for full evaluation and management of an acute myocardial infarction. 1. Admit to CICU. 2. Acute myocardial infarction-as above, patient appears to be suffering an apical acute myocardial infarction. Unfortunately, per recent left heart catheterization, there are no accessible lesions for intervention. Dr. Ledbetter has been consulted. We will follow serial cardiac enzymes. We will optimize patient's medical management. We will follow this closely. 3. Hypertension-we will continue patient's home medications. 4. Hyperlipidemia-we will continue patient on atorvastatin therapy. We will optimize her dosage. 5. Hypertriglyceridemia-we will continue patient on atorvastatin therapy and encourage diet and exercise. 6. Fluid, electrolytes, nutrition. Will monitor electrolytes. Saline lock IV. Regular diet. Prophylaxis. Patient will be placed on subcu Lovenox. cc: Hans Carlos MD
[2017-07-09] MEDS: NORCO-5 PO PRN (03:52)
[2017-07-09] MEDS: SYNTHROID PO SCH ×2 (03:52→05:59)
[2017-07-09 08:22] LABS: CK INDEX 11.7 (0.0-2.5); CK-MB 37.8 ng/mL (0.0-5.0)
[2017-07-09] MEDS ORDERED: KLOR-CON PO SCH (09:00)
[2017-07-09] MEDS ORDERED: PROTONIX PO SCH (09:00)
[2017-07-09] MEDS: ASPIRIN PO SCH (09:38)
[2017-07-09] MEDS: COENZYME Q10 PO SCH (09:38)
[2017-07-09] MEDS: LOPRESSOR PO SCH ×2 (09:38→20:24)
[2017-07-09] MEDS: BRILINTA PO SCH ×2 (11:27→21:47)
--- NOTE | 2017-07-09 14:07 | PROGRESS NOTE ---
DATE: 07/09/2017 SUBJECTIVE: Patient continues without continues without further chest discomfort on room air. OBJECTIVE: Vital Signs: Blood pressure 131/74, heart rate 63 and regular. Chest: Clear to auscultation. Cardiac Exam: Reveals a regular rate and rhythm without appreciable murmur or gallop. There is no evidence of peripheral edema. LABORATORY DATA: Includes a peak troponin of 2.2 and a peak CPK of 519. CPK MB 74.42 with a CPK MB index of 14.3. IMAGING: Repeat limited echocardiography pending. IMPRESSION: 1. Recurrent small apical myocardial infarction with history of previous apical myocardial infarction back in March of this year. 2. Atherosclerotic coronary disease with coronary angiography in March of this year reported significant diffuse coronary atherosclerosis in the very distal left anterior descending coronary of 70% severity in less than 1 mm vessel, too small for revascularization. 3. Rheumatoid arthritis. 4. Hypertension. 5. Obstructive sleep apnea. 6. Hyperlipidemia. RECOMMENDATIONS: 1. Follow up limited echocardiography. 2. Repeat ECG. 3. Continue intensified medical therapy with dual anti-platelet therapy, aspirin 81 mg daily plus Brilinta 90 mg p.o. b.i.d. 4. Continue intensified statin therapy with atorvastatin 80 mg daily as tolerated. 5. Continue beta gisela. 6. Would observe in the hospital another 24 hours and consider discharge tomorrow if patient remains clinically stable. cc: MD Hans Ely MD
--- NOTE | 2017-07-09 15:38 | EKG Report ---
Test Performed on : 07/09/2017 1:37:19 PM Test Reason : apical ND Blood Pressure : / mmHG Vent. Rate : 063 BPM Atrial Rate : 063 BPM P-R Int : 168 ms QRS Dur : 098 ms QT Int : 494 ms P-R-T Axes : 037 042 060 degrees QTc Int : 505 ms Normal sinus rhythm. Low voltage QRS Septal infarct (cited on or before 28-MAR-2017) T wave abnormality, consider anterolateral ischemia Prolonged QT Abnormal ECG When compared with ECG of 08-JUL-2017 10:50, (Unconfirmed) ST no longer elevated in Anterior leads T wave inversion now evident in Anterolateral leads QT has lengthened Confirmed by Ernesto METCALF, Pablo Otto ([id number]) on 07/10/2017 9:59:54 AM
--- NOTE | 2017-07-09 16:43 | ECHO REPORT ---
ORDER DATE: 07/08/2017 INDICATION: Apical PA, cervical cancer, coronary artery disease, hypertension. FINDINGS: 1. Right atrium is normal size. 2. Trace tricuspid regurgitation. RV systolic pressure of 30. 3. Normal RV size and systolic function. 4. Trace pulmonic insufficiency. 5. Normal left atrial size at 3.8. 6. No mitral prolapse. Trace mitral regurgitation. 7. Normal LV size, end-diastolic dimension of 5.4. Normal wall thicknesses with a posterior and interventricular septal wall thickness 1.0 cm each. LV systolic function does appear to be reduced on the order of 40-45%. There appears to be akinesis of the anterior septum and septum. 8. Aortic valve opens well. No evidence of stenosis or insufficiency. 9. Aorta appears normal visualized segments. 10. On some views, there is evidence for a very trace pericardial effusion with no evidence of tamponade physiology. This seems to be predominantly around the right ventricle. cc: MD Jimi Bruce MD Scott A. Matthews, MD
[2017-07-09] MEDS ORDERED: COLACE PO SCH (21:00)
[2017-07-09] MEDS: LIPITOR PO SCH (21:47)
[2017-07-09] MEDS: PAXIL PO SCH (21:48)
[2017-07-09] MEDS: MELATONIN PO SCH (21:48)
--- NOTE | 2017-07-09 22:33 | PROGRESS NOTE ---
DATE: 07/09/2017 SUBJECTIVE: Overall, patient states she has done reasonably well since admission. The patient's cardiac enzymes returned positive ruling in for an acute myocardial infarction. Recent left heart catheterization revealed no evidence of large vessel disease. Diffuse small-vessel disease however was noted. It was felt maximizing medical management was most appropriate. The patient has tolerated this well. Over the course of the day patient denies any chest discomfort. Her p.o. intake is acceptable. She denies any significant palpitations or shortness of breath. Echocardiogram today revealed ejection fraction of 40-45% with akinesis of the anterior septum and septum. OBJECTIVE: T-max 98.3 degrees, heart rate 58-72, respirations 12-16, blood pressure 118-147 over 64-87.General: Well nourished, well developed, no acute distress. Cardiovascular: Regular rate and rhythm. No significant murmurs, rubs, or gallops. Pulmonary: Clear to auscultation bilaterally. Abdomen: Soft, nontender, nondistended. Positive bowel sounds. Extremities: Moves all extremities well. No significant clubbing, cyanosis, or edema. Dermatologic: Evaluation reveals no evidence of rash. LABORATORY DATA: CK total 322, CK/MB 37.8, troponin 0.94. ASSESSMENT AND PLAN: 1. Acute myocardial infarction-I appreciate Dr. Ledbetter's consultation. The patient's troponin increased as high as 2.2. This appears to be trending downwards. The patient currently is asymptomatic. We will continue to work towards optimizing patient's medical management per cardiology recommendation. As described above, recent left heart catheterization suggested this to be secondary to small vessel disease. 2. Hypertension-we will continue to optimize patient's medical management. Blood pressure reasonably controlled. 3. Hyperlipidemia-patient's atorvastatin therapy was increased to 80 mg. Once again, we will continue to optimize her medical management. 4. Hypertriglyceridemia-we will encourage dietary modification. We will continue atorvastatin for now. 5. Disposition-at this point, patient continues to require senior living care in a hospital setting. We will plan discharge home with cardiac rehab once appropriate. cc: Hans Carlos MD
[2017-07-10] MEDS: SYNTHROID PO SCH ×2 (02:23→06:24)
[2017-07-10] MEDS ORDERED: PROTONIX PO SCH (07:00)
[2017-07-10] MEDS ORDERED: SYNTHROID PO SCH (07:00)
[2017-07-10] MEDS: BRILINTA PO SCH (08:36)
[2017-07-10] MEDS: COENZYME Q10 PO SCH (08:37)
[2017-07-10] MEDS: LOPRESSOR PO SCH (08:37)
[2017-07-10] MEDS: ASPIRIN PO SCH (08:37)
[2017-07-10] MEDS ORDERED: NORVASC PO SCH (14:45)
--- NOTE | 2017-07-10 16:11 | PROGRESS NOTE ---
DATE: 07/10/2017 SUBJECTIVE: Patient relates feeling much better. She has some infrequent slight chest discomfort but nothing like what she had when she came into the hospital. OBJECTIVE: Vital Signs: Blood pressure 130/80, heart rate 70 and regular. Neck: There is no significant jugular venous distention. Chest: Clear to auscultation. Cardiac examination: Reveals a regular rate and rhythm without appreciable murmur or gallop. There is no evidence of peripheral edema. ECHOCARDIOGRAPHY: Indicates left ventricular ejection fraction of 45% with akinesis of anterior septum. IMPRESSION: 1. Recurrent apical infarction related to diffuse distal atherosclerosis in left anterior descending coronary not amenable to percutaneous intervention. 2. Hypertension. 3. Hypertriglyceridemia. RECOMMENDATIONS: 1. Continue with aggressive medical management with dual anti-platelet therapy with baby aspirin and Brilinta. Continue metoprolol 25 mg twice daily. Add low-dose calcium channel antagonist to shore up antianginal regimen. Patient had difficulty tolerating isosorbide due to significant headache. 2. Continue aggressive statin with Lipitor 80 mg daily. 3. Patient appears clinically stable to be discharged to home. 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 I suggested that she stay off of work until next week. cc: MD Hans Ely MD
[2017-07-10 16:27] VITALS: BP 138/69
[2017-07-11] MEDS ORDERED: SYNTHROID PO SCH (03:00)
--- NOTE | 2017-07-11 09:18 | DISCHARGE SUMMARY ---
ADMISSION DATE: 07/08/2017 DISCHARGE DATE: 07/10/2017 ADMISSION DIAGNOSIS: Chest pain. DISCHARGE DIAGNOSES: 1. Acute myocardial infarction. 2. Hypertension, present on arrival. 3. Hyperlipidemia, present on arrival. 4. Hypertriglyceridemia, present on arrival. CONSULTATIONS: Dr. Ledbetter with cardiology was consulted for further evaluation and management of chest pain/acute myocardial infarction. PROCEDURES: An echocardiogram was performed on 07/08/2017 which revealed right atrium is normal size. Trace tricuspid regurgitation. RV systolic pressure of 30. Normal RV size and systolic function. Trace pulmonic insufficiency. Normal left atrial size at 3.8. No mitral prolapse. Trace mitral regurgitation. Normal LV size, end-diastolic dimension of 5.4. Normal wall thicknesses with a posterior and interventricular septal wall thickness of 1 cm each. LV systolic function does appear to be reduced in the order of 40-45%. There appears to be akinesis of the anterior septum and septum. Aortic valve opens well. No evidence of stenosis or insufficiency. Aorta appears on normal visualized segments. On some views, there is evidence for a very trace pericardial effusion with no evidence of tamponade physiology. This seems to be predominantly around the right ventricle. HISTORY AND PHYSICAL EXAMINATION: See admit note. PHYSICAL EXAMINATION PRIOR TO DISCHARGE: Vital Signs: Temperature 98.4 degrees, heart rate 68, respirations 18, blood pressure is 138/69. General: Well nourished, well developed, no acute distress. Cardiovascular: Regular rate and rhythm. No significant murmurs, rubs, or gallops. Pulmonary: Clear to auscultation bilaterally. Abdomen: Soft, nontender, nondistended. Positive bowel sounds. Extremities: Moves all extremities well. No significant clubbing, cyanosis, or edema. Dermatologic: Evaluation reveals no evidence of rash. LABORATORY DATA PRIOR TO DISCHARGE: None. HOSPITAL COURSE: Patient was admitted as per history and physical examination. Hospital course per condition is as follows. 1. Acute myocardial infarction-upon admission, patient was noted to have EKG changes consistent with an acute apical infarct. Within the last 3 months, patient had a left heart catheterization which revealed diffuse small-vessel disease. Because of this knowledge and the distribution of the infarct, no further aggressive intervention was felt warranted per cardiology. Maximizing medical management was recommended. The patient's medications were adjusted. Throughout hospitalization, patient's chest pain resolved. The patient will be discharged with very close followup with Dr. Lynn. Should patient have a recurrence of symptoms, she has been instructed to return to the emergency department immediately. 2. Hypertension-patient's blood pressure remained reasonably controlled throughout hospitalization. Her lisinopril has been held in the setting of initiating amlodipine therapy. We will follow her blood pressure closely as an outpatient. 3. Hyperlipidemia-patient was being treated with atorvastatin 40 mg as an outpatient. This was increased to 80 mg while hospitalized. A prescription for 80 mg was provided at time of discharge. 4. Hypertriglyceridemia-patient was continued on atorvastatin therapy while hospitalized. We will continue to encourage dietary modification as well. DISCHARGE CONDITION: Good. DISPOSITION: Discharged to home. MEDICATIONS: 1. Amlodipine 2.5 mg daily. 2. Atorvastatin 80 mg at bedtime. 3. Levothyroxine 125 mcg alternating with 150 mcg daily. 4. Metoprolol 25 mg twice daily. 5. Brilinta 90 mg twice daily. 6. Colace 200 mg at bedtime. 7. Sublingual nitroglycerin as needed. 8. Paroxetine 40 mg daily. 9. Melatonin 5 mg at bedtime. 10. Polyethylene glycol as needed. 11. Lansoprazole 30 mg daily. 12. Potassium chloride 8 mEq every other day. 13. Co-Q10 100 mg daily. 14. Aspirin 81 mg daily. FOLLOWUP: Patient is to follow up with me in 1-2 weeks. Patient is to follow up with Dr. Lynn next Saturday. cc: Hans Carlos MD
== END 2017-07-10 18:14 | disposition home or self-care (01) ==
LOC: 4N 10:39 → ED 10:39 → 3S 19:58
PROVIDERS: ADMIT Internal Medicine; ATTEND Internal Medicine